=== PATIENT | male | born 1995 | race Caucasian/White ===

== ENCOUNTER → 2016-11-23 | Outpatient (REF) | payer BC | LOC: M LAB REF 16:23 | PROVIDERS: ATTEND Nurse Practitioner Family | DX: N50.819 Testicular pain, unspecified (principal) ==

== ENCOUNTER → 2018-03-15 | Outpatient (REF) | payer BC ==
[2018-03-15 16:31] LABS: CHLAMYDIA DNA AMPLIFICATION NEGATIVE (NEGATIVE); GC DNA AMPLIFICATION NEGATIVE (NEGATIVE)
== END ==
LOC: M LAB REF 13:09
DX: M54.5 Low back pain (principal)
CPT/HCPCS: 87086

== ENCOUNTER 2018-06-23 09:55 | Emergency (ER) | payer BC ==
[~2018-06-23] VITALS: Ht 180.3 cm; Wt 79.5 kg
[2018-06-23] MEDS ORDERED: CLON1TAB8 (10:09)
[2018-06-23] MEDS ORDERED: NS 1,000 ML IV ONE (10:30)
[2018-06-23 10:44] LABS: BASO % 0.4 % (0.0-1.0); EOS # 0.2 10^3/uL (0.0-0.50); EOS % 1.7 % (0.0-3.0); HEMATOCRIT 45.9 % (42.0-52.0); HEMOGLOBIN 15.8 g/dl (13.5-17.5); LYMPH # 1.6 10^3/uL (1.5-6.5); LYMPH % 15.1 % (24.0-44.0); MEAN CORPUSCULAR HEMOGLOBIN 30.1 pg (27.0-33.0); MEAN CORPUSCULAR HGB CONC 34.4 g/dl (32.0-36.5); MEAN CORPUSCULAR VOLUME 87.4 fl (80.0-96.0); MONO # 0.9 10^3/uL (0.0-0.8); MONO % 8.8 % (0.0-5.0); NEUTROPHILS # 7.8 10^3/uL (1.8-7.7); NEUTROPHILS % 73.8 % (36.0-66.0); PLATELET COUNT, AUTOMATED 264 10^3/uL (150-450); RED BLOOD COUNT 5.25 10^6/uL (4.30-6.10); WHITE BLOOD COUNT 10.5 10^3/uL (4.0-10.0)
--- NOTE | 2018-06-23 11:02 | REP ---
Clinical: Abdominal pain. Decreased bowel movements. Technique: Single supine view of the abdomen and pelvis. Findings: Bowel gas pattern is nonspecific although mild fecal stasis and constipation cannot be excluded. No obstruction. No perforation. No organomegaly. Skeletal structures intact. Impression: Cannot exclude mild fecal stasis and constipation. Electronically Signed by Ramon Bernard MD 06/23/2018 10:54 A
[2018-06-23 11:15] LABS: ALBUMIN 4.6 GM/DL (3.2-5.2); ALT/SGPT 25 U/L (12-78); AMYLASE 42 U/L (25-115); BILIRUBIN,DIRECT 0.2 MG/DL (0.0-0.2); BILIRUBIN,TOTAL 0.8 MG/DL (0.2-1.0); BLOOD UREA NITROGEN 14 MG/DL (7-18); CALCIUM LEVEL 9.2 MG/DL (8.5-10.1); CARBON DIOXIDE LEVEL 28 MEQ/L (21-32); CHLORIDE LEVEL 107 MEQ/L (98-107); CREATININE FOR GFR 0.83 MG/DL (0.70-1.30); GLOMERULAR FILTRATION RATE > 60.0 (>60); GLUCOSE, FASTING 86 MG/DL (70-100); LIPASE 73 U/L (73-393); POTASSIUM SERUM 4.3 MEQ/L (3.5-5.1); SODIUM LEVEL 140 MEQ/L (136-145); TOTAL PROTEIN 7.6 GM/DL (6.4-8.2)
[2018-06-23] MEDS ORDERED: ISOVUE-370 76% 100ML VIAL (Q9967) As Ordered ONE (11:30)
[2018-06-23] MEDS ORDERED: MORPHINE 4 MG/ML 1ML VIAL/SYRINGE (J2270) IV ONE (11:30)
[2018-06-23] MEDS ORDERED: ONDANSETRON 4MG/2ML VIAL (J2405) IV ONE (11:30)
--- NOTE | 2018-06-23 12:15 | REP ---
Clinical: Lower abdominal pain. Technique: Axial contrast enhanced images from the lung bases to the pubic symphysis using oral (per protocol) and 100 ml Isovue 370 intravenous contrast material with coronal and sagittal re-formations. Findings: Lung bases demonstrate minimal lingular atelectasis/scarring. Liver, spleen, pancreas, gallbladder, bilateral adrenal glands and kidneys are normal. The enteric system is without obstruction or acute inflammatory process. Pelvis demonstrates normal bladder and age appropriate prostate/seminal vesicles. No ascites. No free air. No adenopathy. Abdominal aorta and vasculature without aneurysm. Surrounding musculoskeletal structures are intact. Impression: Negative noncontrast CT of the abdomen and pelvis. Trace lingular atelectasis/scarring. Electronically Signed by Ramon Bernard MD 06/23/2018 12:06 P
[2018-06-23] MEDS ORDERED: MIRA3350 PO (12:38)
[2018-06-23 13:17] VITALS: BP 126/72
== END 2018-06-23 13:00 | disposition home or self-care (01) ==
LOC: M ED 09:55
DX: K59.00 Constipation, unspecified (principal)
CPT/HCPCS: 74018; 74177; 80048; 80076; 81001; 82150; 83690; 85025; 96374; 96375; 99284; J2270; J2405; Q9967

== ENCOUNTER 2020-01-30 04:32 | Emergency (ER) | payer OTHER, BC ==
[~2020-01-30 04:32] MED LIST: CLON1TAB8; MIRA3350 PO
[2020-01-30] MEDS ORDERED: FLUORESCEIN OPHTH 1 MG STRIP As Ordered ONE (06:14)
[2020-01-30] MEDS ORDERED: TETRACAINE 0.5% OPHTH SOLN 4ML As Ordered ONE (06:14)
== END 2020-01-30 06:40 | disposition home or self-care (01) ==
LOC: M ED 04:32
DX: T15.11XA Foreign body in conjunctival sac, right eye, initial encounter (principal); X58.XXXA Exposure to other specified factors, initial encounter; Y92.89 Other specified places as the place of occurrence of the external cause

== ENCOUNTER 2020-03-19 07:24 | Emergency (ER) | payer OTHER, BC ==
[~2020-03-19] VITALS: Ht 180.3 cm; Wt 93.2 kg
[2020-03-19] MEDS ORDERED: KETOROLAC 30 MG/ML 1ML VIAL IV ONE (07:45)
[2020-03-19 08:09] LABS: BASO # 0.1 10^3/uL (0.0-0.2); BASO % 0.7 % (0.0-1.0); EOS # 0.1 10^3/uL (0.0-0.5); HEMATOCRIT 47.3 % (42.0-52.0); HEMOGLOBIN 16.4 g/dl (13.5-17.5); LYMPH # 2.5 10^3/uL (1.5-5.0); LYMPH % 32.7 % (24.0-44.0); MEAN CORPUSCULAR HEMOGLOBIN 30.7 pg (27.0-33.0); MEAN CORPUSCULAR HGB CONC 34.7 g/dl (32.0-36.5); MEAN CORPUSCULAR VOLUME 88.6 fl (80.0-96.0); MONO # 0.6 10^3/uL (0.0-0.8); MONO % 8.2 % (0.0-5.0); NEUTROPHILS # 4.4 10^3/uL (1.5-8.5); NEUTROPHILS % 56.9 % (36.0-66.0); PLATELET COUNT, AUTOMATED 305 10^3/uL (150-450); RED BLOOD COUNT 5.34 10^6/uL (4.30-6.10); WHITE BLOOD COUNT 7.7 10^3/uL (4.0-10.0)
[2020-03-19] MEDS ORDERED: LIDOCAINE 5% (LIDODERM) PATCH TD ONE (08:30)
[2020-03-19] MEDS ORDERED: diazePAM 2 MG TAB PO ONE (08:30)
[2020-03-19 08:31] LABS: ALT/SGPT 59 U/L (12-78); BILIRUBIN,DIRECT 0.2 MG/DL (0.0-0.2); BILIRUBIN,TOTAL 0.8 MG/DL (0.2-1.0); BLOOD UREA NITROGEN 18 MG/DL (7-18); CALCIUM LEVEL 9.3 MG/DL (8.5-10.1); CARBON DIOXIDE LEVEL 22 MEQ/L (21-32); CHLORIDE LEVEL 109 MEQ/L (98-107); CREATININE FOR GFR 0.98 MG/DL (0.70-1.30); GLOMERULAR FILTRATION RATE > 60.0 (>60); GLUCOSE, FASTING 84 MG/DL (70-100); POTASSIUM SERUM 4.2 MEQ/L (3.5-5.1); SODIUM LEVEL 140 MEQ/L (136-145); TOTAL PROTEIN 7.4 GM/DL (6.4-8.2)
[2020-03-19 08:33] LABS: APPEARANCE, URINE CLEAR (CLEAR); BACTERIA, URINE AUTO NEGATIVE (NEGATIVE); BILIRUBIN, URINE AUTO NEGATIVE (NEGATIVE); BLOOD, URINE BLOOD NEGATIVE (NEGATIVE); COLOR, URINE YELLOW (YELLOW); GLUCOSE, URINE (UA) AUTO NEGATIVE (NEGATIVE); KETONE, URINE AUTO NEGATIVE (NEGATIVE); LEUKOCYTE ESTERASE, URINE AUTO NEGATIVE (NEGATIVE); NITRITE, URINE AUTO NEGATIVE (NEGATIVE); PROTEIN, URINE AUTO NEGATIVE (NEGATIVE); RBC, URINE AUTO 1 /HPF (0-3); SPECIFIC GRAVITY URINE AUTO 1.014 (1.002-1.035); SQUAMOUS EPITHELIAL CELL UR AU 0 /HPF (0-6); UROBILINOGEN, URINE AUTO 0.2 mg/dL (0.0-2.0); WBC, URINE AUTO 0 /HPF (0-3)
[2020-03-19] MEDS ORDERED: CYCL-707 PO (09:45)
[2020-03-19] MEDS ORDERED: methylPREDNISolone 125MG 2ML VIAL IV ONE (09:45)
[2020-03-19] MEDS ORDERED: PRED20TA PO (09:45)
[2020-03-19 09:52] VITALS: BP 145/87
[2020-03-19] MEDS ORDERED: **NOTE PATIENT COMMENT** MISC XX SCH (21:00)
== END 2020-03-19 10:12 | disposition home or self-care (01) ==
LOC: M ED 07:24
DX: S39.012A Strain of muscle, fascia and tendon of lower back, initial encounter (principal); X50.0XXA Overexertion from strenuous movement or load, initial encounter; Y92.9 Unspecified place or not applicable; Y93.B9 Activity, other involving muscle strengthening exercises; Y99.9 Unspecified external cause status; M62.830 Muscle spasm of back
CPT/HCPCS: 36415; 80048; 80076; 81001; 85025; 96374; 96375; 99284; J1885; J2930

== ENCOUNTER → 2020-05-05 | Outpatient (REF) | payer BC ==
[~2020-05-05] MED LIST changes: +CYCL-707 PO; +PRED20TA PO
[2020-05-06 10:35] LABS: FREE T3 3.2 PG/ML (2.2-4.0)
== END ==
LOC: M LAB REF 16:51
PROVIDERS: ATTEND Physician Assistant Medical
DX: R68.82 Decreased libido (principal); E03.9 Hypothyroidism, unspecified

== ENCOUNTER 2020-05-30 05:21 | Emergency (ER) | payer BC ==
[~2020-05-30] VITALS: Ht 182.9 cm; Wt 98.2 kg
[2020-05-30] MEDS ORDERED: VALA1TAB5 PO (06:07)
[2020-05-30 06:45] LABS: HEMOGLOBIN 16.3 g/dl (13.5-17.5); MEAN CORPUSCULAR HEMOGLOBIN 29.5 pg (27.0-33.0); PLATELET COUNT, AUTOMATED 349 10^3/uL (150-450); RED BLOOD COUNT 5.52 10^6/uL (4.30-6.10)
[2020-05-30 07:13] LABS: AMPHETAMINES LEVEL URINE NEGATIVE (NEGATIVE); BARBITURATES URINE NEGATIVE (NEGATIVE); BENZODIAZEPINES URINE NEGATIVE (NEGATIVE); CANNABINOIDS URINE POSITIVE (NEGATIVE); COCAINE METABOLITE URINE NEGATIVE (NEGATIVE); METHADONE URINE NEGATIVE (NEGATIVE); OPIATES URINE NEGATIVE (NEGATIVE); PHENCYCLIDINE URINE NEGATIVE (NEGATIVE)
[2020-05-30 07:26] LABS: ACETAMINOPHEN LEVEL < 2.0 UG/ML (10.0-30.0); ALT/SGPT 49 U/L (12-78); BILIRUBIN,DIRECT 0.1 MG/DL (0.0-0.2); BILIRUBIN,TOTAL 0.5 MG/DL (0.2-1.0); BLOOD UREA NITROGEN 11 MG/DL (7-18); CALCIUM LEVEL 8.7 MG/DL (8.5-10.1); CARBON DIOXIDE LEVEL 24 MEQ/L (21-32); CHLORIDE LEVEL 111 MEQ/L (98-107); CREATININE FOR GFR 1.08 MG/DL (0.70-1.30); ETHYL ALCOHOL (ETHANOL) 0.214 % (0.000-0.010); GLOMERULAR FILTRATION RATE > 60.0 (>60); GLUCOSE, FASTING 96 MG/DL (70-100); POTASSIUM SERUM 4.1 MEQ/L (3.5-5.1); SALICYLATE LEVEL < 1.7 MG/DL (5.0-30.0); SODIUM LEVEL 142 MEQ/L (136-145); THYROID STIMULATING HORMONE 0.497 uIU/ML (0.358-3.740); TOTAL PROTEIN 7.9 GM/DL (6.4-8.2)
[2020-05-30] MEDS ORDERED: ONDANSETRON 4 MG TAB PO ONE (13:30)
[2020-05-30] MEDS ORDERED: LORazepam 1 MG TAB PO STA (18:08)
--- NOTE | 2020-05-30 20:42 | ECGEPIP ---
[facility] - ED Test Date: 2020-05-30 Pat Name: ANKIT CARY Department: Room: - Gender: Male Title Vehicle Service Attendant: : 1995 Requested By: ABRAHAM Raines Order Number: [id number] Reading MD: Maria Romo Measurements Intervals [place] Rate: 69 P: 52 DE: 139 QRS: 20 QRSD: 96 T: 26 QT: 379 QTc: 407 Interpretive Statements SINUS RHYTHM WITH SINUS ARRHYTHMIA NO PRIOR Electronically Signed on 05-30-2020 20:41:45 EST by Maria Romo
[2020-05-30] MEDS ORDERED: LORazepam 2 MG TAB PO ONE (23:45)
[2020-05-31] MEDS ORDERED: LORazepam 2 MG TAB PO STA (16:14)
[2020-05-31 20:33] VITALS: BP 146/88
== END 2020-05-31 20:41 ==
LOC: M ED 05:21
DX: R45.851 Suicidal ideations (principal)
CPT/HCPCS: 36415; 80048; 80076; 80307; 84443; 85027; 93005; 99284; G0480; U0002

== ENCOUNTER 2020-09-17 19:07 | Emergency (ER) | payer BC ==
[~2020-09-17] VITALS: Ht 182.9 cm; Wt 102.3 kg
[~2020-09-17 19:07] MED LIST changes: +VALA1TAB5 PO
[2020-09-17] MEDS ORDERED: ONDANSETRON 4MG/2ML VIAL IV ONE (19:30)
[2020-09-17] MEDS: MORPHINE 4 MG/ML 1ML VIAL/SYRINGE (J2270) IV PRN ×2 (19:38→23:58)
[2020-09-17 19:49] LABS: BASO # 0.1 10^3/uL (0.0-0.2); BASO % 0.6 % (0.0-1.0); HEMATOCRIT 49.1 % (42.0-52.0); HEMOGLOBIN 17.6 g/dl (13.5-17.5); LYMPH # 1.5 10^3/uL (1.5-5.0); LYMPH % 18.3 % (24.0-44.0); MEAN CORPUSCULAR HEMOGLOBIN 31.4 pg (27.0-33.0); MEAN CORPUSCULAR HGB CONC 35.8 g/dl (32.0-36.5); MEAN CORPUSCULAR VOLUME 87.5 fl (80.0-96.0); MONO # 0.5 10^3/uL (0.0-0.8); MONO % 6.7 % (2.0-8.0); NEUTROPHILS % 74.3 % (36.0-66.0); PLATELET COUNT, AUTOMATED 381 10^3/uL (150-450); RED BLOOD COUNT 5.61 10^6/uL (4.30-6.10)
--- NOTE | 2020-09-17 20:06 | REPVR ---
PROCEDURE INFORMATION: Exam: CT Cervical Spine Without Contrast Exam date and time: 09/17/2020 7:44 PM Age: 25 years old Clinical indication: Injury or trauma; Fall; Blunt trauma; Additional info: Fall >15 feet, ? loc TECHNIQUE: Imaging protocol: Computed tomography images of the cervical spine without contrast. Radiation optimization: All CT scans at this facility use at least one of these dose optimization techniques: automated exposure control; mA and/or kV adjustment per patient size (includes targeted exams where dose is matched to clinical indication); or iterative reconstruction. COMPARISON: No relevant prior studies available. FINDINGS: Bones/joints: No acute fracture. Normal alignment. Discs/Spinal canal/Neural foramina: No chiki spinal stenosis. No severe bony neural foraminal narrowing. Lungs: Lung apices are clear. Soft tissues: Unremarkable. IMPRESSION: No acute findings. Electronically signed by: Favio Belcher On 09/17/2020 20:06:14 PM
[2020-09-17 20:09] LABS: BLOOD UREA NITROGEN 8 MG/DL (7-18); CALCIUM LEVEL 9.4 MG/DL (8.5-10.1); CARBON DIOXIDE LEVEL 22 MEQ/L (21-32); CHLORIDE LEVEL 111 MEQ/L (98-107); CREATININE FOR GFR 0.98 MG/DL (0.70-1.30); ETHYL ALCOHOL (ETHANOL) 0.242 % (0.000-0.010); GLOMERULAR FILTRATION RATE > 60.0 (>60); GLUCOSE, FASTING 94 MG/DL (70-100); POTASSIUM SERUM 3.6 MEQ/L (3.5-5.1); SODIUM LEVEL 143 MEQ/L (136-145)
--- NOTE | 2020-09-17 20:09 | REPVR ---
PROCEDURE INFORMATION: Exam: CT Head Without Contrast Exam date and time: 09/17/2020 7:44 PM Age: 25 years old Clinical indication: Injury or trauma; Fall; Blunt trauma (contusions or hematomas); With loss of consciousness; Not specified; Additional info: Fall >15 feet, ? loc TECHNIQUE: Imaging protocol: Computed tomography of the head without contrast. Radiation optimization: All CT scans at this facility use at least one of these dose optimization techniques: automated exposure control; mA and/or kV adjustment per patient size (includes targeted exams where dose is matched to clinical indication); or iterative reconstruction. COMPARISON: No relevant prior studies available. FINDINGS: Limitations: Evaluation of the basilar portions of the brain is slightly suboptimal secondary to beam hardening artifact. Brain: The CSF spaces and brain parenchyma density are within normal limits. No intracranial hemorrhage or mass effect. No abnormal intra-axial or extra-axial fluid collections. Cerebral ventricles: No ventriculomegaly. Bones/joints: Unremarkable. No acute fracture. Paranasal sinuses: Visualized sinuses are unremarkable. No fluid levels. Mastoid air cells: Visualized mastoid air cells are well aerated. Soft tissues: Unremarkable. IMPRESSION: No acute abnormality. Electronically signed by: Favio Belcher On 09/17/2020 20:09:19 PM
[2020-09-17] MEDS ORDERED: NS 1,000 ML IV SCH (20:24)
[2020-09-17] MEDS ORDERED: propofoL 200 MG/20 ML VIAL IV PRN (20:25)
[2020-09-17] MEDS ORDERED: KETAMINE HCL 200 MG/20 ML VIAL IV ONE ×2 (20:25→21:55)
--- NOTE | 2020-09-17 20:42 | REPVR ---
PROCEDURE INFORMATION: Exam: XR Right Ankle Exam date and time: 09/17/2020 8:28 PM Age: 25 years old Clinical indication: Pain; Ankle; Right; Additional info: Right ankle fracture TECHNIQUE: Imaging protocol: XR Right ankle. Views: 3 or more views. COMPARISON: CR Ankle, complete 10/30/2013 9:11 PM FINDINGS: Bones/joints: There is an acute fracture subluxation of the ankle. There is an acute fracture of the distal fibula metaphysis with approximately 5 mm lateral displacement. There is an acute fracture of the medial malleolus which is laterally displaced approximately 15 mm. There is a minimally displaced fracture of the posterior tibial malleolus. There is widening of the distal tibiofibular syndesmosis. The talus is laterally subluxed. Soft tissues: There is generalized swelling of the ankle soft tissues. IMPRESSION: Trimalleolar fracture with lateral subluxation of the talus. Electronically signed by: Favio Belcher On 09/17/2020 20:42:50 PM
--- NOTE | 2020-09-17 20:43 | REPVR ---
PROCEDURE INFORMATION: Exam: XR Right Tibia and Fibula Exam date and time: 09/17/2020 7:57 PM Age: 25 years old Clinical indication: Pain; Lower leg; Right; Additional info: Axial load >15 feet fall TECHNIQUE: Imaging protocol: XR Right tibia and fibula. Views: 2 views. COMPARISON: No relevant prior studies available. FINDINGS: Bones/joints: There is a fracture subluxation of the ankle. There is a fracture of the distal fibula metaphysis with mild posterior displacement. There is a fracture of the posterior tibia malleolus. The talus is posteriorly subluxed. The knee joint is intact. Soft tissues: There is swelling of the ankle soft tissues. IMPRESSION: 1. Acute fracture of the distal fibula. 2. Acute fracture of the distal tibia. 3. Posterior subluxation of the talus. Electronically signed by: Favio Belcher On 09/17/2020 20:43:06 PM
--- NOTE | 2020-09-17 20:43 | REPVR ---
PROCEDURE INFORMATION: Exam: XR Right Foot Exam date and time: 09/17/2020 7:57 PM Age: 25 years old Clinical indication: Pain; Foot; Right; Additional info: Axial load >15 feet fall TECHNIQUE: Imaging protocol: XR Right foot. Views: 1 or 2 views. COMPARISON: CR Ankle, complete 10/30/2013 9:11 PM FINDINGS: Bones/joints: There are acute fractures of the distal fibula and tibia. There is deformity of the medial cuneiform, likely the sequelae of old trauma. However, an acute nondisplaced fracture of the medial cuneiform cannot be completely excluded. Close clinical correlation with location of patient's pain is recommended. Soft tissues: The ankle and foot soft tissues are swollen. IMPRESSION: 1. Fractures of the distal tibia and fibula, poorly visualized on this exam. 2. Deformity of the medial cuneiform bone, likely the sequelae of old fracture. An acute nondisplaced fracture cannot be completely excluded. Correlate clinically with location of patient's pain. 3. Swelling of the ankle and foot soft tissues. Electronically signed by: Favio Belcher On 09/17/2020 20:43:18 PM
--- NOTE | 2020-09-17 20:43 | REPVR ---
PROCEDURE INFORMATION: Exam: XR Right Femur Exam date and time: 09/17/2020 7:57 PM Age: 25 years old Clinical indication: Pain; Thigh; Right; Additional info: Axial load >15 feet fall TECHNIQUE: Imaging protocol: XR Right femur. Views: 2 views. COMPARISON: CR Tibia, Fibula lower leg RIGHT 09/17/2020 7:52 PM FINDINGS: Bones/joints: The hip and knee joints are intact. Bone density is normal. No fracture or dislocation. Soft tissues: Unremarkable. IMPRESSION: Fracture or dislocation. Electronically signed by: Favio Belcher On 09/17/2020 20:43:33 PM
--- NOTE | 2020-09-17 22:44 | REPVR ---
PROCEDURE INFORMATION: Exam: CT Right Lower Extremity Without Contrast, Ankle Exam date and time: 09/17/2020 10:00 PM Age: 25 years old Clinical indication: Injury or trauma; Fall; Fracture, traumatic; Closed fracture; Ankle; Right; Not specified; Additional info: Eval fracture pattern TECHNIQUE: Imaging protocol: CT of the Right lower extremity without contrast was performed. Exam focused on the ankle. Radiation optimization: All CT scans at this facility use at least one of these dose optimization techniques: automated exposure control; mA and/or kV adjustment per patient size (includes targeted exams where dose is matched to clinical indication); or iterative reconstruction. COMPARISON: CR Ankle, complete RIGHT 09/17/2020 8:12 PM FINDINGS: The patient has undergone closed reduction and placement of cast material since the previous exam. There has been interval improvement in the position and alignment of the ankle fracture subluxation. The comminuted fracture of the distal fibula metaphysis remains minimally laterally displaced. The posterior tibial malleolus fracture remains posteriorly displaced approximately 5-6 mm. The fracture of the medial malleolus is distracted approximately 7 mm and laterally displaced approximately 4 mm. There is persistent mild lateral subluxation of the talus. IMPRESSION: Status post close reduction of the ankle fracture subluxation with improved but persistent displacement of trimalleolar fractures and lateral subluxation of the talus. Electronically signed by: Favio Belcher On 09/17/2020 22:43:59 PM
[2020-09-18] MEDS ORDERED: OXYCODONE/APAP 5MG/325MG(BULK FOR ED) 1 TABLET PO ONE
[2020-09-18] MEDS ORDERED: PERC5TAB12 PO
[2020-09-18 01:02] VITALS: BP 160/92
--- NOTE | 2020-09-18 08:09 | REP ---
INDICATION: intra reduction COMPARISON: 09/17/2020 tibia-fibula. TECHNIQUE: Two intraoperative fluoroscopic views of the right ankle. FINDINGS: On the AP view the mortise is symmetric. There is PE a fracture of the distal fibular shaft in satisfactory position and alignment in this projection. On the lateral view there is no displacement of the talus. The fibula is excluded at the film margin. IMPRESSION: There is no displacement of the talus. Distal fibular fracture. <Electronically signed by Kvng Vilchis > 09/18/20 0850
--- NOTE | 2020-09-19 17:57 | ER ---
ER CONSULTATION DATE: 09/17/2020 CHIEF COMPLAINT: Right ankle fracture/subluxation. HISTORY OF PRESENT ILLNESS: A 25-year-old man at 6:30 p.m. today was bar drinking with a few friends. He was at [facility], I believe. Jumped off a ledge about 15 feet and twisted his ankle. He was consulted to myself by Dr. Lance for right ankle fracture/subluxation. MEDICAL HISTORY: None. MEDICATIONS: None. ALLERGIES: No known drug allergies. SURGICAL HISTORY: 1. [place] teeth 2. Appendectomy. SOCIAL HISTORY: He smokes vaporizing but no cigarettes. 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 PHYSICAL EXAMINATION: This is a well appearing 25-year-old man. Obvious deformity of the right ankle. It is closed, moderately swollen, and bruised. Pain only to the right ankle. No pain at the right knee, hip, or left contralateral lower extremity or pelvis. Normal sensation and motor function of the foot Strong dorsalis pedis pulse. Radiographs were reviewed, AP, lateral, and obliquae of the right ankle. This shows fracture/subluxation, bimalleolar, possible posterior malleolus fracture. Likely disruption of syndesmosis, right ankle. Cervical spine CT: No acute findings. Femur x-ray: Unremarkable. Foot x-ray: Deformity in the medial cuneiform bone. Head CT: No acute abnormality. Tibia and fibular x-ray demonstrates fracture in distal fibula and right tibia. Posterior subluxation of the talus. ASSESSMENT AND PLAN: This 25-year-old man has a right ankle fracture/subluxation. I recommended closed reduction and casting. We performed that today. I would like to followup him up on an outpatient basis, waiting for the swelling to come down, and he will need open reduction, internal fixation as the general recommended form of treatment as high end stable stable, at least bimalleolar ankle fracture. I recommend nonweightbearing, crutches, and followup in the office early this week to plan for surgery. I communicated the findings to DR. Lance, the emergency department physician animation director. PROCEDURE NOTE: I discussed with the patient pros and cons, risks and benefits of going ahead with right ankle closed reduction and casting. Risks include, but not limited to, pain, stiffness, weakness, damage to surrounding structure, neurovascular injury as well as failure to achieve and maintain closed reduction. He wished to go ahead and signed the consent. Preprocedure time-out was performed, circling correct site, patient, and the procedure. Sedation was given by the emergency department physician, a combination of ketamine and propofol. Once patient was relaxed, I flexed the knee and the hip. I placed a below-knee 3-sided plaster of Maritza splint overwrapped with a 6-inch Sai bandage. I performed three point molding to reduce the lateral subluxation of the talus. I did final repeat x-rays as well as mini C-arm x-rays throughout the reduction to confirm proper reduction of the talus underneath the tibia in both AP and lateral radiographs and proper molding points. Cast was allowed to fully harden, and patient woken up from sedation. Capillary refill under 3 seconds, wiggling the toes afterward. Appropriate cast care instructions given. CALEB
--- NOTE | 2020-09-20 13:32 | ED PDOC ---
Post-Departure Follow-Up dr tellez faxed formal report of right foot, ankle, tib/fib for fu Zahra Correa MD Sep 20, 2020 13:32
== END 2020-09-18 02:53 | disposition home or self-care (01) ==
LOC: M ED 19:07
DX: F10.229 Alcohol dependence with intoxication, unspecified (principal); S82.851A Displaced trimalleolar fracture of right lower leg, initial encounter for closed fracture; W17.89XA Other fall from one level to another, initial encounter; Y92.830 Public park as the place of occurrence of the external cause
CPT/HCPCS: 27818; 70450; 72125; 73552; 73590; 73600; 73610; 73620; 73700; 80048; 82077; 85025; 93041; 96361; 96374; 96375; 96376; 99152; 99285; J2270; J2405

== ENCOUNTER 2020-09-22 11:20 | Day surgery (SDC) | payer BC ==
[~2020-09-22] VITALS: Ht 182.9 cm; Wt 106.3 kg
[~2020-09-22 11:20] MED LIST changes: +MIDAZOLAM INJ 2MG/2ML VIAL (J2250 PER 1MG) IV PRN; +PERC5TAB12 PO; +fentaNYL 100 MCG/2 ML INJECTION (J3010) IV PRN
[2020-09-22] MEDS ORDERED: IBUP200C25 PO (12:05)
[2020-09-22] MEDS ORDERED: KETAMINE HCL 200 MG/20 ML VIAL As Ordered ONE (12:26)
[2020-09-22] MEDS ORDERED: fentaNYL 250 MCG/5 ML INJECTION (J3010) As Ordered ONE (12:26)
[2020-09-22] MEDS ORDERED: MIDAZOLAM INJ 2MG/2ML VIAL (J2250 PER 1MG) As Ordered ONE (12:26)
[2020-09-22] MEDS ORDERED: ONDANSETRON 4MG/2ML VIAL As Ordered ONE ×2 (12:27→21:30)
[2020-09-22] MEDS ORDERED: LIDOCAINE 2% 100MG/5ML SDV (FOR ANES.) As Ordered ONE (12:27)
[2020-09-22] MEDS ORDERED: ROCURONIUM BROMIDE 50 MG/5 ML VIAL As Ordered ONE ×2 (12:27→14:31)
[2020-09-22] MEDS ORDERED: propofoL 200 MG/20 ML VIAL As Ordered ONE (12:27)
[2020-09-22] MEDS ORDERED: dexameTHASONE 4 MG/ML 1ML VIAL (J1100 PER 1MG) As Ordered ONE (12:27)
[2020-09-22] MEDS ORDERED: BUPIVACAINE HCL 0.5% 30 ML VIAL XX ONE ×2 (12:45→13:25)
[2020-09-22] MEDS ORDERED: dexameTHASONE 10MG/1ML VIAL PRES.FREE (J1100 PER 1MG) XX ONE ×2 (12:45→13:25)
[2020-09-22] MEDS ORDERED: LIDOCAINE 1% MDV 20ML VIAL As Ordered ONE (13:12)
[2020-09-22] MEDS: LIDOCAINE 1% MDV 20ML VIAL XX ONE (13:30)
[2020-09-22] MEDS ORDERED: TRANEXAMIC ACID 100 MG/ML 10ML VIAL As Ordered ONE (13:52)
[2020-09-22] MEDS ORDERED: LACRILUBE (AKWA TEARS) OPHTH OINT 3.5 GM As Ordered ONE (13:52)
[2020-09-22] MEDS ORDERED: ceFAZolin 2 GM/D5W 50 ML IV BAG (J0690 PER 500MG) As Ordered ONE (13:52)
[2020-09-22] MEDS ORDERED: LABETALOL 100MG/20ML VIAL As Ordered ONE (14:21)
[2020-09-22] MEDS ORDERED: SUGAMMADEX SODIUM 500 MG/5 ML VIAL (BRIDION) As Ordered ONE (14:25)
[2020-09-22] MEDS ORDERED: ACETAMINOPHEN 1000MG 100ML IV BTL (OFIRMEV) (J0131 PER 10MG) As Ordered ONE (14:25)
[2020-09-22] MEDS ORDERED: fentaNYL 100 MCG/2 ML INJECTION (J3010) As Ordered ONE (16:31)
[2020-09-22] MEDS ORDERED: HYDROmorphone HCL 2 MG/ML 1ML VIAL (J1170) As Ordered ONE (16:42)
[2020-09-22] MEDS ORDERED: METOCLOPRAMIDE INJ 10MG/2ML VIAL (J2765 PER 1) IV PRN (21:45)
[2020-09-22] MEDS ORDERED: ceFAZolin 1GM VIAL (J0690 PER 500MG) As Ordered ONE (21:46)
[2020-09-22] MEDS ORDERED: PERCOCET 5MG/325MG TAB PO ONE (22:05)
[2020-09-22] MEDS ORDERED: ceFAZolin SOD 2 GM in IV 1 EA IV ONE (22:05)
[2020-09-22] MEDS ORDERED: oxyCODONE 5MG TAB PO PRN (22:10)
[2020-09-22] MEDS ORDERED: LR 1,000 ML IV SCH (22:10)
[2020-09-22] MEDS ORDERED: fentaNYL 100 MCG/2 ML INJECTION (J3010) IV PRN (22:10)
[2020-09-22] MEDS ORDERED: ONDANSETRON 4MG/2ML VIAL IV PRN (22:10)
[2020-09-22 22:28] VITALS: BP 162/84
--- NOTE | 2020-09-23 07:33 | RO ---
OPERATIVE NOTE DATE OF OPERATION: 09/22/2020 TIME: 2:40 p.m. PREOPERATIVE DIAGNOSIS: Right ankle closed trimalleolar fracture. POSTOPERATIVE DIAGNOSIS: Right ankle closed trimalleolar fracture. PROCEDURE: Right ankle open reduction and internal fixation. SURGEON: Larry Mas MD PRESS SUPERVISOR: None. SUPERVISING ATTENDING: Larry Mas MD FINDINGS: The patient had a trimalleolar fracture of the right ankle with several fracture blisters. INDICATIONS: This was a 25-year-old male who was playing with friends at [employer] here in [place], [place]. The patient decided to jump from the wall at [employer], thinking that he would land in a pile of stone. However, there was ice underneath the thin layer of snow and he sustained the right ankle fracture while participating in the aforementioned activities. The injury sustained on the August,. At that time, the patient went to the [facility] emergency department and his right ankle fracture dislocation was reduced and plaed in an L and U splint by Dr. Finn. He was sent to Dr. Finn's clinic and preopared for the aforementioned surgery today, right ankle open reduction and internal fixation. ANESTHESIA: GETA. TOURNIQUET TIME: 120 minutes with a 30 minutes tourniquet holiday followed by another 120 minutes. ESTIMATED BLOOD LOSS: 100 mL. IV FLUIDS: Please see anesthesia report. IV ANTIBIOTICS: 2 gm Ancef. IMPLANTS: Synthes. CULTURES: None. SPECIMENS: None. DESCRIPTION OF PROCEDURE: The patient was met in the preoperative holding area where the patient's operative consent was confirmed to be correct. The patient's identity was confirmed to be correct. The patient was then transported to the operating theater where he was placed in the prone position. A safety strap secured the patient to the bed. All bony prominences were well padded and the contralateral lower extremities had SCDs placed. A timeout was called which confirmed the correct patient, correct identity and correct consent. All staff was in agreement. The patient was then draped in the usual sterile fashion. We then began the procedure in earnest. We obtained fluoroscopic imaging to demonstrate the patient's fracture prior to the incision and also marked out the joint line. We began the procedure as mentioned previously in the prone position. I made a modified posteromedial approach just medial to the medial edge of the Achilles tendon, ensuring that I did not cross any fracture blisters. After incising the skin sharply, I then identified the tarsal tunnel. I incised the fascia of the tarsal tunnel and identified both the posterior tibial artery as well as tibial nerve. I then performed a neurolysis of the tibial nerve and protected this throughout the remainder of the case. I then identified the FHL, the flexor hallucis longus muscle belly and this was elevated laterally in order to make our way to the posterior malleolus. At this time, I identified the fracture. We used periosteal elevators to clean the fracture as well as normal saline in order to flush any hematoma from the fracture site. The fracture was elevated using a joker. At this point in time, I was able to use a ball point pusher in order to reduce the fracture into anatomic position and with provisional fixation using thin K-wires. We then placed a T-shaped plate into position and held this with thin wires and fluoroscopic imaging demonstrated that we were satisfied with both the fracture reduction as well as the placement. I then placed an axillary cortical screw just proximal to the most proximal aspect of the posterior malleolus fracture in order to obtain a buttress effect of the plate. I placed two additional proximal cortical screws within the plate in order to provide a buttress effect to secure the posterior malleolar fragment in position. I placed one additional lag screw to the most distal aspect of the plate using a lag by technique mode in order to obtain the posterior malleolus into position. At the completion of the plate placement, I obtained AP and lateral views to ensure that we were satisfied with the fracture reduction and plate placement. I then turned my attention to the distal fibular fracture. I made a separate lateral incision overlying the distal fibula and fibular shaft using a scalpel. I then used electrocautery as well as the Pao in order to dissect through the periosteum. I then identified both the distal fibular comminuted fracture as well as the spiral fracture which propagated proximally. I provided provisional fixation of the spiral proximal fracture using two lobster clamps and was able to obtain provisional fixation of the more comminuted the distal fibular fracture using a point to point bone reducing clamp as well as a lobster clamp. Once we had provided provisional fixation to the fibula fracture, I was able to use two 2.7 mm cortical screws using lag by technique in order to provide definitive fixation of the spiral proximal propagating fracture. I then planned to use the plate to bridge the comminuted segment of the similar fracture. Finding the plate underneath the aforementioned clamps, I was able to secure distally using four distal locking screws and secured it proximally using two cortical screws. Each of these proximal cortical screws had exceptional purchase and so a third cortical proximal screw was not required. After placement of the two lag screws as well as the lateral fibular plate, we obtained fluoroscopic imaging to demonstrate that we were satisfied with both of the fracture reduction as well as the fibular plate placement. I obtained a mortise view to ensure that the distal locking screws were not within the tibiotalar joint. At this point in time, I turned my attention to the medial aspect of the patient's ankle. I made a small 2 cm incision overlying the medial malleolus using a scalpel. I then used a scalpel as well as hemostats to clean the medial malleolar fracture and to extract periosteum which had been incarcerated within the fracture fragment. I then reduced this using a point to point bone-reducing clamp and obtained fluoroscopic imaging to demonstrate that we were satisfied with the medial malleolar fracture reduction. I then placed two thin wires within the medial malleolus which were slightly divergent on the lateral view and super closed on the AP and mortise views and did not violate the tibiotalar joint. I then placed two percutaneous partially-threaded 4.0 mm self-drilling, self-tapping screws overlying the aforementioned wires and compressed the medial malleolar fracture. At this point in time, I copiously irrigated all the surgical incisions using 6 liters of normal saline. I stressed the syndesmosis using a dorsiflexion, external rotation examination. It was stable without any lateral translation of the talus. I closed the dermal layer of each of my three incisions using 2-0 Vicryl to close the epidermis layer using 2-0 nylon. I then placed large swatches of Xeroform overlying both the surgical incisions as well as the fracture blisters and the patient's right lower extremity was placed in a well-padded L and U splint. The patient was then extubated without complication and transferred to the postanesthesia care unit. At this point in time, the patient will be nonweightbearing to the right lower extremity. The patient was given postoperative medication to include Percocet, Zofran, Colace and aspirin which will be picked up by his mother at [facility]. The patient will be nonweightbearing to his right lower extremity and remain in a splint for two weeks until his follow-up appointment at [facility] on the September,. The patient will use his medications as prescribed. The patient's mother was educated of the aforementioned findings. Also, the patient will follow the postoperative rehabilitation protocol for ankle fracture, open reduction and internal fixation.
--- NOTE | 2020-09-23 07:47 | REP ---
INDICATION: RIGHT ANKLE FRACTURE. COMPARISON: Comparison ankle radiographs September 17, 2020.. TECHNIQUE: Twenty five views. 3 minutes 14 seconds of fluoroscopy time is reported. FINDINGS: A sequence of 25 last image hold fluoroscopically obtained spot radiographs of the right ankle document open reduction internal fixation of trimalleolar fracture subluxation. IMPRESSION: Procedural imaging. <Electronically signed by Shar Moise > 09/23/20 0709
== END 2020-09-22 22:51 | disposition home or self-care (01) ==
LOC: M SDC 11:20
PROVIDERS: ATTEND Orthopaedic Surgery
DX: S82.851A Displaced trimalleolar fracture of right lower leg, initial encounter for closed fracture (principal); W17.89XA Other fall from one level to another, initial encounter; Y92.830 Public park as the place of occurrence of the external cause; Y93.89 Activity, other specified; Y99.8 Other external cause status; F41.9 Anxiety disorder, unspecified
CPT/HCPCS: 27822; 64445; 76000; C1713; J0131; J0690; J1100; J1170; J2250; J2405; J2765; J3010; U0002

== ENCOUNTER → 2020-10-05 | Outpatient (CLI) | payer BC ==
[~2020-10-05] MED LIST changes: +IBUP200C25 PO; -MIDAZOLAM INJ 2MG/2ML VIAL (J2250 PER 1MG) IV PRN; -fentaNYL 100 MCG/2 ML INJECTION (J3010) IV PRN
--- NOTE | 2020-10-05 09:38 | REP ---
INDICATION: F/U FX. COMPARISON: None. TECHNIQUE: AP, lateral, oblique views of the right ankle. FINDINGS: Evaluation is limited by overlying cast material. The patient is status post satisfactory open reduction and fixation for trimalleolar ankle fractures. No obvious new acute injury appreciated. IMPRESSION: Status post satisfactory open reduction and fixation. <Electronically signed by Ramon Bernard > 10/05/20 0992
== END ==
LOC: M SOG 08:47
PROVIDERS: ATTEND Orthopaedic Surgery
DX: S82.851D Displaced trimalleolar fracture of right lower leg, subsequent encounter for closed fracture with routine healing (principal); Y92.9 Unspecified place or not applicable; Y93.9 Activity, unspecified; Y99.9 Unspecified external cause status

== ENCOUNTER → 2020-10-29 | Outpatient (CLI) | payer BC ==
--- NOTE | 2020-10-29 13:29 | REP ---
INDICATION: F/U FX. COMPARISON: 09/17/2020, 10/05/2020. TECHNIQUE: Four views right ankle. FINDINGS: Metallic internal fixation is again seen in the distal fibula and tibia 4 fractures at these locations. There is no change in alignment. Two small calcifications are seen along the cortex of the medial malleolus. Previously noted splint is no longer visualized. IMPRESSION: Fractures distal fibula and tibia with metallic internal fixation, with no change in position or alignment. <Electronically signed by Kvng Tirado > 10/29/20 [id number]
== END ==
LOC: M SOG 12:26
PROVIDERS: ATTEND Orthopaedic Surgery
DX: S82.851D Displaced trimalleolar fracture of right lower leg, subsequent encounter for closed fracture with routine healing (principal)

== ENCOUNTER → 2020-11-23 | Outpatient (CLI) | payer BC ==
--- NOTE | 2020-11-23 12:25 | REP ---
INDICATION: F/U FX. COMPARISON: 10/29/2020 TECHNIQUE: AP, lateral, bilateral oblique views of the right ankle. FINDINGS: Evidence for prior open reduction and fixation with callus formation suggesting healing. Fracture fragments demonstrates stable alignment. IMPRESSION: Status post open reduction and fixation with healing noted. <Electronically signed by Ramon Bernard > 11/23/20 [id number]
== END ==
LOC: M SOG 11:17
PROVIDERS: ATTEND Orthopaedic Surgery
DX: S82.851D Displaced trimalleolar fracture of right lower leg, subsequent encounter for closed fracture with routine healing (principal)

== ENCOUNTER → 2022-07-31 | Outpatient (REF) | payer BC ==
[2022-08-02 20:07] LABS: TESTOSTERONE FREE (DIRECT) 13.7 pg/mL (9.3-26.5)
== END ==
LOC: M LAB REF 15:58
PROVIDERS: ATTEND Physician Assistant Medical
DX: R68.82 Decreased libido (principal)

== ENCOUNTER 2024-08-08 17:07 | Emergency (ER) | payer BC, OTHER ==
[~2024-08-08] VITALS: Ht 182.9 cm; Wt 104.6 kg
[2024-08-08 18:22] LABS: BASO # 0.1 10^3/uL (0.0-0.2); BASO % 1.1 % (0.0-1.0); EOS % 0.5 % (0.0-3.0); HEMATOCRIT 44.9 % (42.0-52.0); HEMOGLOBIN 16.1 g/dl (13.5-17.5); LYMPH # 1.6 10^3/uL (1.5-5.0); LYMPH % 28.9 % (24.0-44.0); MEAN CORPUSCULAR HGB CONC 35.9 g/dl (32.0-36.5); MEAN CORPUSCULAR VOLUME 86.5 fl (80.0-96.0); MONO # 0.4 10^3/uL (0.0-0.8); MONO % 7.5 % (2.0-8.0); NEUTROPHILS # 3.4 10^3/uL (1.5-8.5); NEUTROPHILS % 61.6 % (36.0-66.0); PLATELET COUNT, AUTOMATED 306 10^3/uL (150-450); RED BLOOD COUNT 5.19 10^6/uL (4.30-6.10); WHITE BLOOD COUNT 5.6 10^3/uL (4.0-10.0)
[2024-08-08 18:32] LABS: BLOOD UREA NITROGEN 12 MG/DL (9-23); CALCIUM LEVEL 9.5 MG/DL (8.5-10.1); CARBON DIOXIDE LEVEL 23 MMOL/L (20-31); CHLORIDE LEVEL 104 MMOL/L (98-107); CK-MB VALUE MASS < 1.0 NG/ML (<3.6); CREATININE FOR GFR 0.76 MG/DL (0.70-1.30); GLOMERULAR FILTRATION RATE > 60.0 (>60); GLUCOSE, FASTING 88 MG/DL (60-100); POTASSIUM SERUM 3.6 MMOL/L (3.5-5.1); SODIUM LEVEL 141 MMOL/L (136-145)
[2024-08-08 18:34] LABS: CPK CREATINE PHOSPHOKINASE 127 U/L (46-171); MB/CK RELATIVE INDEX 0.78 (< OR =4)
[2024-08-08 19:35] LABS: CK-MB VALUE MASS < 1.0 NG/ML (<3.6)
[2024-08-08 19:37] LABS: CPK CREATINE PHOSPHOKINASE 113 U/L (46-171); MB/CK RELATIVE INDEX 0.88 (< OR =4)
[2024-08-08 21:08] VITALS: BP 169/112
[2024-08-08] MEDS: amLODIPine 5 MG TAB PO ONE (21:08)
[2024-08-08 22:01] VITALS: BP 166/83; TEMP 98.3; O2SAT 99
[2024-08-08] MEDS ORDERED: NORV5TAB PO (22:08)
== END 2024-08-08 22:34 | disposition home or self-care (01) ==
LOC: M ED 17:07
DX: R07.9 Chest pain, unspecified (principal); I10 Essential (primary) hypertension; R00.1 Bradycardia, unspecified; F12.10 Cannabis abuse, uncomplicated; F10.10 Alcohol abuse, uncomplicated; Z91.048 Other nonmedicinal substance allergy status; Z79.1 Long term (current) use of non-steroidal anti-inflammatories (NSAID); Z79.899 Other long term (current) drug therapy

== ENCOUNTER 2024-10-28 21:56 | Emergency (ER) | payer OTHER ==
[~2024-10-28] VITALS: Ht 182.9 cm; Wt 92.7 kg
[~2024-10-28 21:56] MED LIST changes: +NORV5TAB PO
[2024-10-28 23:03] LABS: BASO # 0.1 10^3/uL (0.0-0.2); BASO % 1.2 % (0.0-1.0); EOS % 0.3 % (0.0-3.0); HEMATOCRIT 48.3 % (42.0-52.0); HEMOGLOBIN 17.2 g/dl (13.5-17.5); LYMPH # 1.7 10^3/uL (1.5-5.0); LYMPH % 22.3 % (24.0-44.0); MEAN CORPUSCULAR HEMOGLOBIN 30.6 pg (27.0-33.0); MEAN CORPUSCULAR HGB CONC 35.6 g/dl (32.0-36.5); MEAN CORPUSCULAR VOLUME 85.9 fl (80.0-96.0); MONO # 0.7 10^3/uL (0.0-0.8); MONO % 8.7 % (2.0-8.0); NEUTROPHILS # 5.2 10^3/uL (1.5-8.5); NEUTROPHILS % 67.2 % (36.0-66.0); PLATELET COUNT, AUTOMATED 311 10^3/uL (150-450); RED BLOOD COUNT 5.62 10^6/uL (4.30-6.10); WHITE BLOOD COUNT 7.7 10^3/uL (4.0-10.0)
[2024-10-28 23:30] LABS: CK-MB VALUE MASS < 1.0 NG/ML (<3.6)
[2024-10-28 23:34] LABS: ALBUMIN 4.9 G/DL (3.2-5.2); ALKALINE PHOSPHATASE 89 U/L (40-129); ALT/SGPT 80 U/L (7.0-40); AST/SGOT 39 U/L (<34); BILIRUBIN,DIRECT 0.5 MG/DL (<0.4); BILIRUBIN,TOTAL 1.5 MG/DL (0.3-1.2); BLOOD UREA NITROGEN 20 MG/DL (9-23); CALCIUM LEVEL 10.9 MG/DL (8.5-10.1); CARBON DIOXIDE LEVEL 23 MMOL/L (20-31); CHLORIDE LEVEL 100 MMOL/L (98-107); CPK CREATINE PHOSPHOKINASE 128 U/L (46-171); CREATININE FOR GFR 0.86 MG/DL (0.70-1.30); GLOMERULAR FILTRATION RATE > 90.0 (>60); GLUCOSE, FASTING 91 MG/DL (60-100); MB/CK RELATIVE INDEX 0.78 (< OR =4); POTASSIUM SERUM 3.6 MMOL/L (3.5-5.1); SODIUM LEVEL 137 MMOL/L (136-145); TOTAL PROTEIN 8.5 G/DL (5.7-8.2)
[2024-10-29 02:32] LABS: CK-MB VALUE MASS < 1.0 NG/ML (<3.6)
[2024-10-29 02:44] LABS: CPK CREATINE PHOSPHOKINASE 123 U/L (46-171); MB/CK RELATIVE INDEX 0.81 (< OR =4)
[2024-10-29] MEDS ORDERED: LORazepam 2 MG TAB PO PRN (03:05)
[2024-10-29] MEDS: THIAMINE 100 MG TAB PO SCH (03:20)
[2024-10-29] MEDS: chlordiazePOXIDE 25 MG CAP PO SCH (03:20)
[2024-10-29 04:25] VITALS: TEMP 98.2; O2SAT 100
[2024-10-29 04:27] VITALS: BP 150/97
[2024-10-29] MEDS ORDERED: FOLIC ACID 1MG TAB PO SCH (09:00)
[2024-10-29] MEDS ORDERED: MULTIVITAMINS/MINERALS THERAP 1 TAB PO SCH (09:00)
== END 2024-10-29 05:08 | disposition left against medical advice (07) ==
LOC: M ED 21:56
DX: Z53.21 Procedure and treatment not carried out due to patient leaving prior to being seen by health care provider (principal)